=== PATIENT | male | born 1945 | race Caucasian/White ===

== ENCOUNTER 2017-11-26 12:06 | Emergency (ER) | payer MEDICARE, BC ==
[2017-11-26] MEDS: Ondansetron 4 MG/2 ML SDV IVPUSH ONE (12:40)
[2017-11-26] MEDS: HYDROmorphone 1 MG/ML Syringe IVPUSH ONE (12:41)
--- NOTE | 2017-11-26 12:48 | EDM.PDOC ---
ED HPI GENERAL MEDICAL PROBLEM - General Chief Complaint: Flank Pain Stated Complaint: KIDNEY STONE Time Seen by Provider: 11/26/17 12:45 Source of Information: Reports: Patient History Limitations: Reports: No Limitations - History of Present Illness INITIAL COMMENTS - FREE TEXT/NARRATIVE: pt has severe rt flank pain. He has passed 5-6 stones this year. He is very uncomfortable at this time. He has not noted blood in the urine . He has had the pain for about 2 hours. Onset: Today Duration: Hour(s): Location: Reports: Abdomen, Other ( rt flank. ) Associated Symptoms: Reports: No Other Symptoms Flank Pain Score (Numeric/FACES): 10 - Related Data Allergies Allergy/AdvReac Type Severity Reaction Status Date / Time No Known Allergies Allergy Verified 11/26/17 12:31 Home Meds: Home Meds Multivitamin [Multi-Vitamin Daily] 1 each PO DAILY 12/30/12 [History] Aspirin [Halfprin] 1 tab PO DAILY 11/26/17 [History] Carvedilol 1 tab PO DAILY 11/26/17 [History] Minocycline [Minocin] 1 tab PO DAILY 11/26/17 [History] Omeprazole 1 tab PO DAILY 11/26/17 [History] atorvaSTATin Calcium [Atorvastatin Calcium] 1 tab PO DAILY 11/26/17 [History] Past Medical History HEENT History: Reports: Hard of Hearing Cardiovascular History: Reports: Hypertension, [place] Gastrointestinal History: Reports: Diverticulosis Genitourinary History: Reports: Renal Calculus Musculoskeletal History: Reports: Back Pain, Chronic Neurological History: Reports: Vertigo Psychiatric History: Reports: Panic Attack, Other (See Below) Other Psychiatric History: medication related x1 Dermatologic History: Reports: Other (See Below) Other Dermatologic History: roseasa - Infectious Disease History Infectious Disease History: Reports: Herpes, Measles - Past Surgical History Cardiovascular Surgical History: Reports: Coronary Artery Stent GI Surgical History: Reports: Colonoscopy, EGD, Hernia, Inguinal Musculoskeletal Surgical History: Reports: Arthroscopic Knee Social & Family History - Family History : Reports: Renal Calculus - Tobacco Use Smoking Status *Q: Never Smoker - Caffeine Use Caffeine Use: Reports: Soda, Tea - Recreational Drug Use Recreational Drug Use: No ED ROS GENERAL - Review of Systems Review Of Systems: See Below Constitutional: Reports: No Symptoms HEENT: Reports: No Symptoms Respiratory: Reports: No Symptoms Cardiovascular: Reports: No Symptoms Endocrine: Reports: No Symptoms GI/Abdominal: Reports: Abdominal Pain, Other ( rt flank pain. ) : Reports: No Symptoms Musculoskeletal: Reports: No Symptoms Skin: Reports: No Symptoms Neurological: Reports: No Symptoms Psychiatric: Reports: Anxiety ED EXAM, GI/ABD - Physical Exam Exam: See Below Text/Narrative:: pt arrived with severe rt flank pain. He has a history of multiple stones.- kidney Exam Limited By: No Limitations General Appearance: Alert, Moderate Distress Ears: Normal TMs Nose: Normal Inspection Throat/Mouth: Normal Inspection Head: Atraumatic Neck: Normal Inspection Respiratory/Chest: No Respiratory Distress Cardiovascular: Regular Rate, Rhythm GI/Abdominal Exam: Soft, Non-Tender (Male) Exam: Other ( severe rt flank pain) Rectal (Males) Exam: Deferred Back Exam: Normal Inspection Extremities: Normal Inspection Neurological: Alert, Oriented, Normal Cognition Psychiatric: Normal Affect Course - Vital Signs Last Recorded V/S: Last Vital Signs Temp 35.7 C 11/26/17 12:31 Pulse 61 11/26/17 12:56 Resp 16 11/26/17 12:56 BP 140/85 11/26/17 12:56 Pulse Ox 97 11/26/17 12:56 - Orders/Labs/Meds Orders: Active Orders 24 hr Category Date Time Status UA W/MICROSCOPIC [URIN] Urgent Lab 11/26/17 12:31 Ordered Sodium Chloride 0.9% [Normal Saline] 1,000 ml Med 11/26/17 13:00 Active IV ASDIRECTED Sodium Chloride 0.9% [Normal Saline] 1,000 ml Med 11/26/17 14:30 Active IV ASDIRECTED Medication Orders Sodium Chloride (Normal Saline) 1,000 mls @ 999 mls/hr IV ASDIRECTED ELIEZER Last Admin: 11/26/17 12:57 Dose: 999 mls/hr Sodium Chloride (Normal Saline) 1,000 mls @ 999 mls/hr IV ASDIRECTED ELIEZER Last Admin: 11/26/17 14:25 Dose: 999 mls/hr Labs: Laboratory Tests 11/26/17 11/26/17 11/26/17 Range/Units 12:25 12:25 12:31 WBC 7.9 (4.5-11.0) K/uL RBC 4.91 (4.30-5.90) M/uL Hgb 14.4 (12.0-15.0) g/dL Hct 43.3 (40.0-54.0) % MCV 88 (80-98) fL MCH 29 (27-31) pg MCHC 33 (32-36) % Plt Count 213 (150-400) K/uL Neut % (Auto) 72 H (36-66) % Lymph % (Auto) 17 L (24-44) % [place] % (Auto) 9 H (2-6) % Eos % (Auto) 3 (2-4) % Baso % (Auto) 0 (0-1) % Sodium 140 (140-148) mmol/L Potassium 4.1 (3.6-5.2) mmol/L Chloride 106 (100-108) mmol/L Carbon Dioxide 23 (21-32) mmol/L Anion Gap 11.3 (5.0-14.0) mmol/L BUN 19 H (7-18) mg/dL Creatinine 1.8 H (0.8-1.3) mg/dL Est Cr Clr Drug Dosing 36.94 mL/min Estimated GFR (MDRD) 37 L (>60) Glucose 136 H (74-106) mg/dL Calcium 9.2 (8.5-10.1) mg/dL Total Bilirubin 0.6 (0.2-1.0) mg/dL AST 30 D (15-37) U/L ALT 33 D (12-78) U/L Alkaline Phosphatase 120 H (46-116) U/L Total Protein 7.5 (6.4-8.2) g/dL Albumin 3.7 (3.4-5.0) g/dL Globulin 3.8 H (2.3-3.5) g/dL Albumin/Globulin Ratio 1.0 L (1.2-2.2) Urine Color Yellow Urine Appearance Clear Urine pH 5.0 (4.5-8.0) Ur Specific [place] 1.030 (1.008-1.030) Urine Protein Negative (NEGATIVE) mg/dL Urine Glucose (UA) Normal (NEGATIVE) mg/dL Urine Ketones Negative (NEGATIVE) mg/dL Urine Occult Blood Negative (NEGATIVE) Urine Nitrite Negative (NEGAITVE) Urine Bilirubin Small (NEGATIVE) Urine Urobilinogen Normal (NORMAL) mg/dL Ur Leukocyte Esterase Negative (NEGATIVE) Urine RBC Not seen (0-5) Urine WBC Not seen (0-5) Ur Epithelial Cells Not seen Amorphous Sediment Many Urine Bacteria Not seen Urine Mucus Not seen Meds: Medications Generic Name Dose Route Start Last Admin Trade Name Freq PRN Reason Stop Dose Admin Sodium Chloride 1,000 mls @ 999 mls/hr 11/26/17 13:00 11/26/17 12:57 Normal Saline IV 999 mls/hr ASDIRECTED ELIEZER Administration Sodium Chloride 1,000 mls @ 999 mls/hr 11/26/17 14:30 11/26/17 14:25 Normal Saline IV 999 mls/hr ASDIRECTED ELIEZER Administration Discontinued Medications Generic Name Dose Route Start Last Admin Trade Name Freq PRN Reason Stop Dose Admin Hydromorphone HCl 1 mg 11/26/17 12:36 11/26/17 12:41 Dilaudid IVPUSH 11/26/17 12:37 1 mg ONETIME ONE Administration Ketorolac Tromethamine 30 mg 11/26/17 14:05 11/26/17 14:19 Toradol IVPUSH 11/26/17 14:06 30 mg ONETIME ONE Administration Ondansetron HCl 4 mg 11/26/17 12:36 11/26/17 12:40 Zofran IVPUSH 11/26/17 12:37 4 mg ONETIME ONE Administration Tamsulosin HCl 0.4 mg 11/26/17 13:13 11/26/17 13:30 Flomax PO 11/26/17 13:14 0.4 mg ONETIME ONE Administration - Re-Assessments/Exams Free Text/Narrative Re-Assessment/Exam: 11/26/17 14:48 pt had a cat scan which shows a 5 mm stone just ready to pass into the bladder. Labs otherwise are neg. Departure - Departure Time of Disposition: 14:40 Disposition: Home, Self-Care 01 Condition: Fair Clinical Impression: Ureter, calculus, Multiple kidney stones - Discharge Information Referrals: PCP,None [Primary Care Provider] - Forms: ED Department Discharge Care Plan Goals: push fluids, percocet 5/325 q6h prn for pain, torodol 10mg qid as needed for pain flomax .4 1 tab daily for 5 days. - My Orders Last 24 Hours: My Active Orders 11/26/17 12:31 UA W/MICROSCOPIC [URIN] Urgent 11/26/17 13:00 Sodium Chloride 0.9% [Normal Saline] 1,000 ml IV ASDIRECTED 11/26/17 14:30 Sodium Chloride 0.9% [Normal Saline] 1,000 ml IV ASDIRECTED - Assessment/Plan Last 24 Hours: My Active Orders 11/26/17 12:31 UA W/MICROSCOPIC [URIN] Urgent 11/26/17 13:00 Sodium Chloride 0.9% [Normal Saline] 1,000 ml IV ASDIRECTED 11/26/17 14:30 Sodium Chloride 0.9% [Normal Saline] 1,000 ml IV ASDIRECTED
[2017-11-26 12:57] VITALS: BP 140/85
[2017-11-26] MEDS: Sodium Chloride 0.9% 1,000 ML IV SCH ×2 (12:57→14:25)
[2017-11-26] MEDS: Tamsulosin 0.4 MG Cap.ER PO ONE (13:30)
--- NOTE | 2017-11-26 14:13 | CT ---
Abdomen Pelvis wo Cont CLINICAL HISTORY: Right flank pain COMPARISON: 08/31/2015. TECHNIQUE: Axial tomographic images are obtained from the dome of the diaphragm to the pubic symphysi s without IV contrast enhancement. No oral contrast was used. Auto dosage reduction and iterative rec onstruction techniques employed. FINDINGS: The lung bases show some streaky densities bilaterally which is likely due to some scarring and streaky atelectasis. The liver contains scattered low attenuation foci in the right lobe largest is posterior measuring 2.7 x 1.5 cm these likely represent hepatic cysts. They are unchanged from pr ior study. The gallbladder has a normal appearance. The spleen has a normal size and shape. The pancr eas is free of mass or inflammatory change. The adrenal glands appear normal bilaterally. The right kidney is hydronephrotic. There are multiple small stones. There is right perinephric stran ding. The right ureter is dilated along its proximal two thirds. There is a more normal caliber dista lly. There is a 3 x 3 x 5 mm stone in the right side of the bladder. This appears to be within the bl adder lumen. There may be some thickening of the very distal ureter and UVJ likely soft tissue swelli ng. The aorta has a normal contour. There is no suspicious retroperitoneal adenopathy. There is moder ate to the sigmoid the diverticulosis without evidence of diverticulitis. Some irregular density in t he fat near the internal inguinal ring. This is likely related to previous herniorrhaphy. Impression: Multiple renal calculi bilaterally Right-sided hydronephrosis and hydroureter. There is a stone in the bladder lumen just beyond the UVJ . Distal ureteral and UVJ swelling is not excluded. Diverticulosis without evidence of diverticulitis
[2017-11-26] MEDS: Ketorolac 30 MG/ML SDV IVPUSH ONE (14:19)
== END 2017-11-26 14:55 | disposition home or self-care (01) ==
LOC: JP.ED 12:06
DX: N13.2 Hydronephrosis with renal and ureteral calculous obstruction (principal); I10 Essential (primary) hypertension; Z79.82 Long term (current) use of aspirin; Z79.899 Other long term (current) drug therapy
CPT/HCPCS: 36415; 74176; 80053; 81001; 85025; 96361; 96374; 96375; 99284; A9270; J1170; J1885; J2405; J7030

== ENCOUNTER 2018-08-25 02:23 | Emergency (ER) | payer BC, MEDICARE ==
--- NOTE | 2018-08-25 02:57 | EDM.PDOC ---
ED HPI GENERAL MEDICAL PROBLEM - General Chief Complaint: Cardiovascular Problem Stated Complaint: HEART ISSUES? Time Seen by Provider: 08/25/18 02:52 Source of Information: Reports: Patient History Limitations: Reports: No Limitations - History of Present Illness INITIAL COMMENTS - FREE TEXT/NARRATIVE: pt arrived because he woke up not feeling right. He is presently caring for his mother in a hospice situation. The rest of the family has not been helpful. He has been stressed about that. He did have a strange feeling in his chest and he was alarmed. When he had his MO he had pain between his shoulder blades and he did not have anything else. Onset: Today, Sudden Duration: Hour(s): Location: Reports: Chest Associated Symptoms: Reports: Other (pt may have had a strange tightness. ) - Related Data Allergies Allergy/AdvReac Type Severity Reaction Status Date / Time No Known Allergies Allergy Verified 08/25/18 02:26 Home Meds: Home Meds Multivitamin [Multi-Vitamin Daily] 1 each PO DAILY 12/30/12 [History] Aspirin [Halfprin] 1 tab PO DAILY 11/26/17 [History] Carvedilol 2 tab PO BID 11/26/17 [History] Minocycline [Minocin] 1 tab PO DAILY 11/26/17 [History] Omeprazole 1 tab PO DAILY 11/26/17 [History] Rosuvastatin [Crestor] 20 mg PO DAILY 04/14/18 [History] Past Medical History HEENT History: Reports: Hard of Hearing Cardiovascular History: Reports: CAD, [place], Stents Other Cardiovascular History: 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 Gastrointestinal History: Reports: Diverticulosis Genitourinary History: Reports: Renal Calculus Musculoskeletal History: Reports: Back Pain, Chronic Neurological History: Reports: Vertigo Psychiatric History: Reports: Panic Attack Other Psychiatric History: medication related x1 Dermatologic History: Reports: Other (See Below) Other Dermatologic History: roseasa - Infectious Disease History Infectious Disease History: Reports: Herpes, Measles - Past Surgical History Head Surgeries/Procedures: Reports: None HEENT Surgical History: Reports: None Cardiovascular Surgical History: Reports: Coronary Artery Stent GI Surgical History: Reports: Colonoscopy, EGD, Hernia, Inguinal Neurological Surgical History: Reports: None Musculoskeletal Surgical History: Reports: Arthroscopic Knee Social & Family History - Family History : Reports: Renal Calculus - Tobacco Use Smoking Status *Q: Never Smoker Second Hand Smoke Exposure: No - Caffeine Use Caffeine Use: Reports: None - Recreational Drug Use Recreational Drug Use: No ED ROS GENERAL - Review of Systems Review Of Systems: See Below Constitutional: Reports: No Symptoms HEENT: Reports: No Symptoms Respiratory: Reports: No Symptoms Cardiovascular: Reports: Other ( strange tightness in his chest) Endocrine: Reports: No Symptoms GI/Abdominal: Reports: No Symptoms : Reports: No Symptoms Musculoskeletal: Reports: No Symptoms Skin: Reports: No Symptoms ED EXAM, GENERAL - Physical Exam Exam: See Below Free Text/Narrative:: pt has been anxious.He is helping to care for his mother who is on hospice and he is not getting alot of support from the rest of his family. Exam Limited By: No Limitations General Appearance: Alert, Anxious, Mild Distress, Other (pupils are equal and reactive. 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 ) GI/Abdominal: Soft, Non-Tender (Male) Exam: Deferred Rectal (Males) Exam: Deferred Back Exam: Normal Inspection Extremities: Normal Inspection Neurological: Alert, Oriented, Normal Cognition Psychiatric: Anxious Course - Vital Signs Last Recorded V/S: Last Vital Signs Temp 36.4 C 08/25/18 02:28 Pulse 62 08/25/18 03:08 Resp 14 08/25/18 03:08 BP 136/79 08/25/18 03:08 Pulse Ox 97 08/25/18 03:08 - Orders/Labs/Meds Labs: Laboratory Tests 08/25/18 08/25/18 08/25/18 Range/Units 03:04 03:04 03:04 WBC 4.7 (4.5-11.0) K/uL RBC 4.49 (4.30-5.90) M/uL Hgb 13.0 (12.0-15.0) g/dL Hct 40.3 (40.0-54.0) % MCV 90 (80-98) fL MCH 29 (27-31) pg MCHC 32 (32-36) % Plt Count 197 (150-400) K/uL Neut % (Auto) 51 (36-66) % Lymph % (Auto) 34 (24-44) % Power % (Auto) 10 H (2-6) % Eos % (Auto) 5 H (2-4) % Baso % (Auto) 0 (0-1) % Sodium 143 (140-148) mmol/L Potassium 3.9 (3.6-5.2) mmol/L Chloride 108 (100-108) mmol/L Carbon Dioxide 24 (21-32) mmol/L Anion Gap 10.9 (5.0-14.0) mmol/L BUN 21 H (7-18) mg/dL Creatinine 1.4 H (0.8-1.3) mg/dL Est Cr Clr Drug Dosing 45.25 mL/min Estimated GFR (MDRD) 50 L (>60) Glucose 107 H (74-106) mg/dL Calcium 8.7 (8.5-10.1) mg/dL Total Bilirubin 0.4 (0.2-1.0) mg/dL AST 29 (15-37) U/L ALT 33 (12-78) U/L Alkaline Phosphatase 104 (46-116) U/L Troponin I < 0.017 (0.000-0.056) ng/mL Total Protein 7.2 (6.4-8.2) g/dL Albumin 3.4 (3.4-5.0) g/dL Globulin 3.8 H (2.3-3.5) g/dL Albumin/Globulin Ratio 0.9 L (1.2-2.2) - Re-Assessments/Exams Free Text/Narrative Re-Assessment/Exam: 08/25/18 03:02 pt had a ekg which showed evidence of his old inferior infarct. his rhythm was normal. Pt has normal labs except for a borderline creatnine. His gfr is 50. 08/25/18 03:40 Departure - Departure Time of Disposition: 03:41 Disposition: Home, Self-Care 01 Condition: Fair Clinical Impression: Anxiety Instructions: Living With Anxiety Referrals: Keon Munguia MD [Primary Care Provider] - Forms: ED Department Discharge Care Plan Goals: pt needs to take a break from his moms care who is in hospice. rtc if further symptoms.
[2018-08-25 03:30] VITALS: BP 136/79
== END 2018-08-25 03:50 | disposition home or self-care (01) ==
LOC: JP.ED 02:23
DX: F41.9 Anxiety disorder, unspecified (principal); I25.10 Atherosclerotic heart disease of native coronary artery without angina pectoris; I25.2 Old myocardial infarction; Z79.899 Other long term (current) drug therapy; Z79.82 Long term (current) use of aspirin
CPT/HCPCS: 36415; 80053; 84484; 85025; 93005; 99285-25

== ENCOUNTER 2019-09-07 18:36 | Emergency (ER) | payer MEDICARE ==
--- NOTE | 2019-09-07 19:05 | EDM.PDOC ---
ED HPI GENERAL MEDICAL PROBLEM - General Chief Complaint: Cardiovascular Problem Stated Complaint: SWEATING,FUNNY FEELING EPISODE Time Seen by Provider: 09/07/19 18:58 Source of Information: Reports: Patient History Limitations: Reports: No Limitations - History of Present Illness INITIAL COMMENTS - FREE TEXT/NARRATIVE: pt had a brief episode about 1 hour ago that he did not feel right. He did get very sweaty. It went away and now he feels normal. Onset: Today, Sudden Duration: Hour(s): Location: Reports: Head, Generalized, Other (pt did get very sweaty. ) - Related Data Allergies Allergy/AdvReac Type Severity Reaction Status Date / Time No Known Allergies Allergy Verified 09/07/19 18:56 Home Meds: Home Meds Multivitamin [Multi-Vitamin Daily] 1 each PO DAILY 12/30/12 [History] Aspirin [Halfprin] 1 tab PO DAILY 11/26/17 [History] Minocycline [Minocin] 1 tab PO DAILY 11/26/17 [History] Omeprazole 1 tab PO DAILY 11/26/17 [History] carvediloL [Carvedilol] 2 tab PO BID 11/26/17 [History] Rosuvastatin [Crestor] 20 mg PO DAILY 04/14/18 [History] Past Medical History HEENT History: Reports: Hard of Hearing Cardiovascular History: Reports: CAD, [place], Stents Other Cardiovascular History: 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 Gastrointestinal History: Reports: Diverticulosis Genitourinary History: Reports: Renal Calculus Musculoskeletal History: Reports: Back Pain, Chronic Neurological History: Reports: Vertigo Psychiatric History: Reports: Panic Attack Other Psychiatric History: medication related x1 Dermatologic History: Reports: Other (See Below) Other Dermatologic History: roseasa - Infectious Disease History Infectious Disease History: Reports: Herpes, Measles - Past Surgical History Head Surgeries/Procedures: Reports: None HEENT Surgical History: Reports: None Cardiovascular Surgical History: Reports: Coronary Artery Stent GI Surgical History: Reports: Colonoscopy, EGD, Hernia, Inguinal Neurological Surgical History: Reports: None Musculoskeletal Surgical History: Reports: Arthroscopic Knee Social & Family History - Family History : Reports: Renal Calculus - Caffeine Use Caffeine Use: Reports: None ED ROS GENERAL - Review of Systems Review Of Systems: See Below Constitutional: Reports: Diaphoresis, Other (pt just had a ely and he felt very strange) HEENT: Reports: No Symptoms Respiratory: Reports: No Symptoms Cardiovascular: Reports: Other (pt did not have chest pain. ) Endocrine: Reports: No Symptoms GI/Abdominal: Reports: No Symptoms : Reports: No Symptoms Musculoskeletal: Reports: No Symptoms Neurological: Reports: Other (pt felt strange and he got very sweaty. ) Psychiatric: Reports: Anxiety Hematologic/Lymphatic: Reports: No Symptoms ED EXAM, GENERAL - Physical Exam Exam: See Below Free Text/Narrative:: pt arrived after having an episode when he suddenly felt unsteady briefly and he got very sweaty after that. He did not have chest pain Exam Limited By: No Limitations General Appearance: Alert, Anxious Ears: Normal TMs Nose: Normal Inspection Throat/Mouth: Normal Inspection Head: Atraumatic Neck: Normal Inspection Respiratory/Chest: No Respiratory Distress Cardiovascular: Regular Rate, Rhythm GI/Abdominal: Soft, Non-Tender (Male) Exam: Deferred Rectal (Males) Exam: Deferred Back Exam: Normal Inspection Extremities: Normal Inspection Neurological: Alert, Oriented, Normal Cognition Psychiatric: Anxious Course - Vital Signs Last Recorded V/S: Last Vital Signs Temp 36.3 C 09/07/19 19:00 Pulse 70 09/07/19 20:10 Resp 9 L 09/07/19 20:10 BP 125/74 09/07/19 20:10 Pulse Ox 96 09/07/19 20:10 Orthostatic Blood Pressure [ 123/76 Standing] Orthostatic Blood Pressure [ 131/82 Sitting] Orthostatic Blood Pressure [ 124/72 Supine] - Orders/Labs/Meds Labs: Laboratory Tests 09/07/19 09/07/19 09/07/19 Range/Units 19:00 19:00 19:41 WBC 4.9 (4.5-11.0) K/uL RBC 4.42 (4.30-5.90) M/uL Hgb 12.9 (12.0-15.0) g/dL Hct 40.1 (40.0-54.0) % MCV 91 (80-98) fL MCH 29 (27-31) pg MCHC 32 (32-36) % Plt Count 194 (150-400) K/uL Neut % (Auto) 60 (36-66) % Lymph % (Auto) 25 (24-44) % [place] % (Auto) 10 H (2-6) % Eos % (Auto) 5 H (2-4) % Baso % (Auto) 0 (0-1) % Sodium 141 (140-148) mmol/L Potassium 3.9 (3.6-5.2) mmol/L Chloride 108 (100-108) mmol/L Carbon Dioxide 24 (21-32) mmol/L Anion Gap 9.0 (5.0-14.0) mmol/L BUN 25 H (7-18) mg/dL Creatinine 1.5 H (0.8-1.3) mg/dL Est Cr Clr Drug Dosing 43.07 mL/min Estimated GFR (MDRD) 46 L (>60) Glucose 131 H (74-106) mg/dL Calcium 8.1 L (8.5-10.1) mg/dL Total Bilirubin 0.4 (0.2-1.0) mg/dL AST 32 (15-37) U/L ALT 41 (12-78) U/L Alkaline Phosphatase 104 (46-116) U/L Troponin I < 0.017 (0.000-0.056) ng/mL Total Protein 7.1 (6.4-8.2) g/dL Albumin 3.4 (3.4-5.0) g/dL Globulin 3.7 H (2.3-3.5) g/dL Albumin/Globulin Ratio 0.9 L (1.2-2.2) Urine Color (YELLOW) Urine Appearance (CLEAR) Urine pH (5.0-8.0) Ur Specific [place] (1.008-1.030) Urine Protein (NEGATIVE) mg/dL Urine Glucose (UA) (NEGATIVE) mg/dL Urine Ketones (NEGATIVE) mg/dL Urine Occult Blood (NEGATIVE) Urine Nitrite (NEGATIVE) Urine Bilirubin (NEGATIVE) Urine Urobilinogen (0.2-1.0) EU/dL Ur Leukocyte Esterase (NEGATIVE) Urine RBC (0-5) Urine WBC (0-5) Ur Epithelial Cells Amorphous Sediment Urine Bacteria Urine Mucus 09/07/19 Range/Units 20:06 WBC (4.5-11.0) K/uL RBC (4.30-5.90) M/uL Hgb (12.0-15.0) g/dL Hct (40.0-54.0) % MCV (80-98) fL MCH (27-31) pg MCHC (32-36) % Plt Count (150-400) K/uL Neut % (Auto) (36-66) % Lymph % (Auto) (24-44) % [place] % (Auto) (2-6) % Eos % (Auto) (2-4) % Baso % (Auto) (0-1) % Sodium (140-148) mmol/L Potassium (3.6-5.2) mmol/L Chloride (100-108) mmol/L Carbon Dioxide (21-32) mmol/L Anion Gap (5.0-14.0) mmol/L BUN (7-18) mg/dL Creatinine (0.8-1.3) mg/dL Est Cr Clr Drug Dosing mL/min Estimated GFR (MDRD) (>60) Glucose (74-106) mg/dL Calcium (8.5-10.1) mg/dL Total Bilirubin (0.2-1.0) mg/dL AST (15-37) U/L ALT (12-78) U/L Alkaline Phosphatase (46-116) U/L Troponin I (0.000-0.056) ng/mL Total Protein (6.4-8.2) g/dL Albumin (3.4-5.0) g/dL Globulin (2.3-3.5) g/dL Albumin/Globulin Ratio (1.2-2.2) Urine Color Yellow (YELLOW) Urine Appearance Clear (CLEAR) Urine pH 5.5 (5.0-8.0) Ur Specific [place] >= 1.030 (1.008-1.030) Urine Protein Negative (NEGATIVE) mg/dL Urine Glucose (UA) Negative (NEGATIVE) mg/dL Urine Ketones Negative (NEGATIVE) mg/dL Urine Occult Blood Trace-intact H (NEGATIVE) Urine Nitrite Negative (NEGATIVE) Urine Bilirubin Negative (NEGATIVE) Urine Urobilinogen 0.2 (0.2-1.0) EU/dL Ur Leukocyte Esterase Negative (NEGATIVE) Urine RBC 0-5 (0-5) Urine WBC Not seen (0-5) Ur Epithelial Cells Not seen Amorphous Sediment Not seen Urine Bacteria Few Urine Mucus Not seen - Re-Assessments/Exams Free Text/Narrative Re-Assessment/Exam: 09/07/19 20:13 pt was found to have anormal ekg, normal rhythm, normal labs, a nd a normal trop. he has no further symptoms. He had normal orthostatics. 09/07/19 20:32 urine was concentrated and pt appeard dehydrated. Departure - Departure Time of Disposition: 21:10 Disposition: Home, Self-Care 01 Condition: Fair Clinical Impression: Anxiety, Adverse reaction to caffeine, Dehydration Instructions: Dehydration, Adult, [id number] Referrals: Keon Munguia MD [Primary Care Provider] - Forms: ED Department Discharge Care Plan Goals: rtc if any further symptoms. push fluids. Sepsis Event Note - Focused Exam Date Exam was Performed: 09/13/19 Time Exam was Performed: 07:55
[2019-09-07 20:11] VITALS: BP 125/74; PULSE 70
== END 2019-09-07 20:50 | disposition home or self-care (01) ==
LOC: JP.ED 18:36
DX: F41.9 Anxiety disorder, unspecified (principal); E86.0 Dehydration; T43.615A Adverse effect of caffeine, initial encounter; I25.10 Atherosclerotic heart disease of native coronary artery without angina pectoris; I25.2 Old myocardial infarction; Z79.899 Other long term (current) drug therapy; Z79.82 Long term (current) use of aspirin
CPT/HCPCS: 36415; 80053; 81001; 84484; 85025; 93005; 93010; 99283; 99284-25

== ENCOUNTER 2021-03-21 07:24 | Day surgery (SDC) | payer MEDICARE ==
[~2021-03-21 07:24] MED LIST: Midazolam 1 MG/ML 2 ML SDV ONE; Propofol 200 MG/20 ML SDV ONE; fentaNYL 100 MCG/2 ML SDV ONE
[2021-03-21] MEDS ORDERED: Sodium Chloride 0.9% 1,000 ML IV SCH (08:00)
[2021-03-21 08:15] LABS: CORONAVIRUS COVID-19 NAA NEGATIVE (NEGATIVE)
[2021-03-21 10:13] VITALS: BP 126/72; PULSE 62
--- NOTE | 2021-03-21 10:57 | OR ---
DATE OF PROCEDURE: 03/21/2021 SURGEON: Erwin Hancock MD PROCEDURE: Colonoscopy. FINDINGS: 1. Diverticulosis, mild, mostly limited to sigmoid colon. 2. Approximately 1 cm polyp, essentially at the junction of ascending and transverse colon, completely removed using endoscopic mucosal resection techniques. COMPLICATIONS: None. MAKE UP ARTIST: None. PREOPERATIVE DIAGNOSIS: Screening colonoscopy. POSTOPERATIVE DIAGNOSIS: Screening colonoscopy. RISKS: Risks, benefits, alternatives, and limitations including, but not limited to infection, bleeding, perforation, false positive, and false negatives were explained to the patient who wished to proceed. PROCEDURE IN DETAIL: The patient was placed in left lateral decubitus position. Digital rectal exam was performed without abnormality. Scope was introduced and advanced atraumatically to the ileocecal valve. A photo was taken of this. Scope was brought back to the ascending, transverse, descending colon, and retroflexed. No evidence of old or new blood. No masses. No polyps. The aforementioned polyp was identified. This was elevated using Delia Ink and completely removed using hot snare wire device. No abnormal bleeding was noted after removal. No abnormalities on retroflexion. Diverticulosis was described as mild, limited to sigmoid colon without evidence of diverticulitis or bleeding. The prep was acceptable, approximately 90% of the luminal surface could be seen. The patient tolerated the procedure well. Erwin Hancock MD /[id number]
== END 2021-03-21 10:14 | disposition home or self-care (01) ==
LOC: JP.SDS 07:24
PROVIDERS: ATTEND Surgery
DX: Z12.11 Encounter for screening for malignant neoplasm of colon (principal); D12.2 Benign neoplasm of ascending colon; D12.3 Benign neoplasm of transverse colon; K57.30 Diverticulosis of large intestine without perforation or abscess without bleeding; K21.9 Gastro-esophageal reflux disease without esophagitis; I25.2 Old myocardial infarction; Z01.812 Encounter for preprocedural laboratory examination; Z20.822 Contact with and (suspected) exposure to COVID-19
CPT/HCPCS: 0241U; 45390; 88305; J2250; J2704; J3010; J7030

== ENCOUNTER 2022-10-06 18:59 | Emergency (ER) | payer MEDICARE ==
[2022-10-06] MEDS ORDERED: Ketorolac 15 MG/ML SDV IVPUSH ONE (19:22)
[2022-10-06] MEDS ORDERED: Ondansetron 4 MG/2 ML SDV IVPUSH ONE (19:22)
[2022-10-06] MEDS ORDERED: Sodium Chloride 0.9% 10 ML Syringe FLUSH PRN (19:22)
[2022-10-06 19:39] LABS: BASOPHILS PERCENT AUTO 0.1 % (0.1-1.3); EOSINOPHILS ABSOLUTE AUTO 0.13 K/uL (0.00-0.40); EOSINOPHILS PERCENT AUTO 1.5 % (0.0-5.4); HEMATOCRIT 43.4 % (38.4-49.7); HEMOGLOBIN 14.4 g/dL (12.9-16.9); IMMATURE GRAN ABSOLUTE AUTO 0.03 K/uL (0.00-0.23); IMMATURE GRAN PERCENT AUTO 0.3 % (0.0-0.7); LYMPHOCYTES ABSOLUTE AUTO 0.88 K/uL (0.8-3.3); LYMPHOCYTES PERCENT AUTO 10.2 % (11.4-47.7); MEAN CORPUSCULAR HEMOGLOBIN 29.8 pg (31.6-35.5); MEAN CORPUSCULAR HGB CONC 33.2 g/dL (31.6-35.5); MEAN CORPUSCULAR VOLUME 89.7 fL (81.4-99.0); MONOCYTES PERCENT AUTO 8.1 % (3.3-12.6); NEUTROPHILS PERCENT AUTO 79.8 % (40.0-78.1); PLATELET COUNT,PLT 160 K/uL (130-375); RED BLOOD CELL COUNT 4.84 M/uL (4.14-5.76); WHITE BLOOD CELL COUNT,WBC 8.7 K/uL (3.2-11.0)
[2022-10-06 19:40] LABS: BASOPHILS ABSOLUTE AUTO 0.01 K/uL (0.00-0.10)
[2022-10-06 19:46] LABS: APPEARANCE,URINE SLIGHTLY CLOUDY (CLEAR); BILIRUBIN,URINE NEGATIVE (NEGATIVE); COLOR,URINE YELLOW (YELLOW); GLUCOSE,URINE NEGATIVE (NEGATIVE); KETONES,URINE NEGATIVE (NEGATIVE); LEUKOCYTE ESTERASE,URINE NEGATIVE (NEGATIVE); NITRITE,URINE NEGATIVE (NEGATIVE); OCCULT BLOOD,URINE LARGE (NEGATIVE); PROTEIN,URINE 100 mg/dL (NEGATIVE); UROBILINOGEN,URINE 0.2 EU/dL (0.2-1.0)
[2022-10-06 19:53] LABS: AMORPHOUS SEDIMENT,URINE NOT SEEN; BACTERIA,URINE FEW; EPITHELIAL CELLS,URINE NOT SEEN; MUCUS,URINE NOT SEEN; RBC,URINE 20-30 (0-5); WBC,URINE 0-5 (0-5)
[2022-10-06 20:01] LABS: BLOOD UREA NITROGEN,BUN 21 mg/dL (7-18); CARBON DIOXIDE,CO2 25 mmol/L (21-32); CHLORIDE,CL 104 mmol/L (100-108); CREATININE 1.4 mg/dL (0.8-1.3); GLUCOSE RANDOM 114 mg/dL (74-106); SODIUM,NA 138 mmol/L (140-148)
[2022-10-06 20:02] LABS: A/G RATIO 0.9 (1.2-2.2); ALANINE AMINOTRANSFERASE,ALT 37 U/L (12-78); ALBUMIN 3.7 g/dL (3.4-5.0); ALKALINE PHOSPHATASE 118 U/L (46-116); ASPARTATE AMNIOTRANSFERASE,AST 29 U/L (15-37); BILIRUBIN TOTAL 0.6 mg/dL (0.2-1.0); CALCIUM 8.5 mg/dL (8.5-10.1); EST CRCL DRUG DOSING (CG) 42.62 mL/min; ESTIMATED GFR 52 mL/min (>60); PROTEIN TOTAL,TP 7.9 g/dL (6.4-8.2)
[2022-10-06] MEDS ORDERED: Tamsulosin 0.4 MG Cap.ER PO ONE (21:07)
[2022-10-06] MEDS ORDERED: Sodium Chloride 0.9% 1,000 ML IV SCH (21:30)
[2022-10-06 22:06] VITALS: BP 123/65; PULSE 70
== END 2022-10-06 22:27 | disposition home or self-care (01) ==
LOC: JP.ED 18:59
DX: N13.2 Hydronephrosis with renal and ureteral calculous obstruction (principal); I25.10 Atherosclerotic heart disease of native coronary artery without angina pectoris; E78.00 Pure hypercholesterolemia, unspecified; I25.2 Old myocardial infarction; Z79.899 Other long term (current) drug therapy; Z79.82 Long term (current) use of aspirin
CPT/HCPCS: 36415; 74176; 80053; 81001; 85025; 96361; 96374; 96375; 99284; A9270; J1885; J2405; J3490; J7030

== ENCOUNTER 2023-01-23 06:55 | Day surgery (SDC) | payer MEDICARE ==
[2023-01-23] MEDS ORDERED: fentaNYL 50 MCG/ML SDV ONE (07:09)
[2023-01-23] MEDS ORDERED: Propofol 200 MG/20 ML SDV ONE (07:09)
[2023-01-23] MEDS: Sodium Chloride 0.9% 1,000 ML IV SCH (09:02)
[2023-01-23 09:03] VITALS: BP 120/76; PULSE 69
== END 2023-01-23 09:10 | disposition home or self-care (01) ==
LOC: JP.SDS 06:55
PROVIDERS: ATTEND Surgery
DX: Z12.11 Encounter for screening for malignant neoplasm of colon (principal); K57.30 Diverticulosis of large intestine without perforation or abscess without bleeding; I25.10 Atherosclerotic heart disease of native coronary artery without angina pectoris; I42.9 Cardiomyopathy, unspecified; E78.00 Pure hypercholesterolemia, unspecified
CPT/HCPCS: 45380; 88305; J2704; J3010; J7030

== ENCOUNTER 2023-03-23 01:32 | Emergency (ER) | payer MEDICARE ==
[2023-03-23] MEDS ORDERED: Aspirin 81 MG Tab.Chew PO ONE (01:38)
[2023-03-23] MEDS ORDERED: Sodium Chloride 0.9% 10 ML Syringe FLUSH PRN (01:39)
[2023-03-23 01:45] LABS: BASOPHILS PERCENT AUTO 0.3 % (0.1-1.3); EOSINOPHILS ABSOLUTE AUTO 0.23 K/uL (0.00-0.40); EOSINOPHILS PERCENT AUTO 3.8 % (0.0-5.4); HEMATOCRIT 42.7 % (38.4-49.7); HEMOGLOBIN 13.9 g/dL (12.9-16.9); IMMATURE GRAN PERCENT AUTO 0.3 % (0.0-0.7); LYMPHOCYTES ABSOLUTE AUTO 1.94 K/uL (0.8-3.3); LYMPHOCYTES PERCENT AUTO 31.9 % (11.4-47.7); MEAN CORPUSCULAR HEMOGLOBIN 29.6 pg (31.6-35.5); MEAN CORPUSCULAR HGB CONC 32.6 g/dL (31.6-35.5); MONOCYTES ABSOLUTE AUTO 0.61 K/uL (0.20-0.90); NEUTROPHILS ABSOLUTE AUTO 3.26 K/uL (1.0-7.6); NEUTROPHILS PERCENT AUTO 53.7 % (40.0-78.1); PLATELET COUNT,PLT 185 K/uL (130-375); RED BLOOD CELL COUNT 4.69 M/uL (4.14-5.76); WHITE BLOOD CELL COUNT,WBC 6.1 K/uL (3.2-11.0)
[2023-03-23 01:53] LABS: BASOPHILS ABSOLUTE AUTO 0.02 K/uL (0.00-0.10); IMMATURE GRAN ABSOLUTE AUTO 0.02 K/uL (0.00-0.23)
[2023-03-23 02:09] LABS: INR 1.2; PROTHROMBIN TIME 11.8 sec (9.2-10.6); PTT,PARTIAL THROMBOPLSTIN TIME 25.9 sec (21.8-27.3)
[2023-03-23 02:15] LABS: ANION GAP 9.7 mmol/L (5.0-14.0); CALCIUM 8.2 mg/dL (8.5-10.1); CREATININE 1.2 mg/dL (0.8-1.3); EST CRCL DRUG DOSING (CG) 51.46 mL/min; POTASSIUM,K 3.7 mmol/L (3.6-5.2); TROPONIN I HIGH SENSITIVITY 7.9 pg/mL (<=60.3)
[2023-03-23 03:25] VITALS: BP 135/73; PULSE 58
== END 2023-03-23 04:24 | disposition home or self-care (01) ==
LOC: JP.ED 01:32
DX: I25.10 Atherosclerotic heart disease of native coronary artery without angina pectoris (principal); I25.5 Ischemic cardiomyopathy; I10 Essential (primary) hypertension; E78.00 Pure hypercholesterolemia, unspecified; Z95.5 Presence of coronary angioplasty implant and graft; Z90.49 Acquired absence of other specified parts of digestive tract; Z79.899 Other long term (current) drug therapy; Z79.82 Long term (current) use of aspirin
CPT/HCPCS: 36415; 71045; 71045-26; 80048; 83880; 84484; 85025; 85610; 85730; 93005; 93010; 99284; 99285; A9270-GY; J3490

== ENCOUNTER 2023-08-18 01:02 | Emergency (ER) | payer MEDICARE ==
[2023-08-18] MEDS: Ketorolac 30 MG/ML SDV IM ONE (01:23)
[2023-08-18 01:53] VITALS: BP 140/72; PULSE 88
== END 2023-08-18 02:40 | disposition home or self-care (01) ==
LOC: JP.ED 01:02
DX: N13.2 Hydronephrosis with renal and ureteral calculous obstruction (principal); I25.2 Old myocardial infarction; Z95.5 Presence of coronary angioplasty implant and graft; E78.00 Pure hypercholesterolemia, unspecified; I25.10 Atherosclerotic heart disease of native coronary artery without angina pectoris; Z79.82 Long term (current) use of aspirin; Z79.899 Other long term (current) drug therapy
CPT/HCPCS: 74176; 96372; 99284; J1885